=== PATIENT | male | born 1995 | race African-American/Black ===

== ENCOUNTER 2018-06-09 15:39 | Emergency (ER) | payer OTHER ==
[~2018-06-09] VITALS: Ht 172.7 cm; Wt 64.9 kg
[2018-06-09 18:33] VITALS: BP 118/60
[2018-06-09] MEDS ORDERED: ACETAMINOPHEN ES 500 MG TABLET PO ONE (19:00)
[2018-06-09] MEDS ORDERED: DEXAMETHASONE SOD PHOSPHATE 10 MG/ML VIAL IM ONE (19:00)
[2018-06-09] MEDS ORDERED: PROCHLORPERAZINE EDISYLATE 10 MG/2 ML VIAL IM ONE (19:00)
[2018-06-09] MEDS ORDERED: DEXAMETHASONE SOD PHOSPHATE 10 MG/ML VIAL ONE (19:38)
[2018-06-09] MEDS ORDERED: ACETAMINOPHEN ES 500 MG TABLET ONE (19:39)
[2018-06-09] MEDS ORDERED: PROCHLORPERAZINE EDISYLATE 10 MG/2 ML VIAL ONE (19:39)
--- NOTE | 2018-06-09 20:31 | NUR ---
DR. MURRAY AT BEDSIDE SPEAKING TO PT AND MOTHER REGARDING POC.
== END 2018-06-09 21:06 | disposition home or self-care (01) ==
LOC: ER 16:06
DX: R51 Headache (principal); R11.10 Vomiting, unspecified
CPT/HCPCS: 70450; 96372 ×2; 99284; A4606; J0780; J1100; Z7610